=== PATIENT | female | born 1950 | race Caucasian/White ===

== ENCOUNTER 2017-05-07 13:09 | Emergency (ER) | payer OTHER ==
[~2017-05-07] VITALS: Ht 157.5 cm; Wt 82.6 kg
[2017-05-07 13:13] VITALS: BP 136/60
--- NOTE | 2017-05-07 16:37 | NUR ---
PT AMBULATED TO BED 2
--- NOTE | 2017-05-07 16:45 | NUR ---
66/F PRESENT TO ER C/O LT HAND PAIN x 3 DAYS AGO. HX: POLIO, HYPOTHYROIDISM PT STATES SHE FELL AND LANDED ON HER LT HAND, PT DENIES LOC/KO. AAOX4 WITH EVEN AND STEADY GAIT; PATIENT STATES PAIN OF 5/10 AT THIS TIME; PATIENT POSITIONED FOR COMFORT; HOB ELEVATED; BEDRAILS UP X2; BED DOWN. ER MD MADE AWARE OF PT STATUS.
--- NOTE | 2017-05-07 16:58 | NUR ---
Patient being evaluated by physician at bedside.
[2017-05-07] MEDS ORDERED: KETOROLAC 60 MG/2 ML VIAL IM ONE (17:00)
[2017-05-07] MEDS ORDERED: HYDROcodone/APAP 5/325 MG 1 TAB TAB PO ONE (17:00)
--- NOTE | 2017-05-07 17:23 | NUR ---
Patient discharged with v/s stable. Written and verbal after care instructions given and explained. Patient alert, oriented and verbalized understanding of instructions. Ambulatory with steady gait. All questions addressed prior to discharge. ID band removed. Patient advised to follow up with PMD. Rx of MOTRIN, TRAMADOL given. Patient educated on indication of medication including possible reaction and side effects. Opportunity to ask questions provided and answered.
[2017-05-07 17:49] VITALS: BP 136/60
== END 2017-05-07 17:23 | disposition home or self-care (01) ==
LOC: MED 13:09
DX: S62.327A Displaced fracture of shaft of fifth metacarpal bone, left hand, initial encounter for closed fracture (principal); W19.XXXA Unspecified fall, initial encounter; Y93.89 Activity, other specified; Y92.89 Other specified places as the place of occurrence of the external cause; Y99.8 Other external cause status; E03.9 Hypothyroidism, unspecified
CPT/HCPCS: 73130; 99284

== ENCOUNTER 2020-09-09 11:24 | Emergency (ER) | payer OTHER ==
[~2020-09-09] VITALS: Ht 144.8 cm; Wt 74.8 kg
[2020-09-09 11:31] VITALS: BP 155/73
--- NOTE | 2020-09-09 11:36 | NUR ---
PT TO AWAIT IN LOBBY
--- NOTE | 2020-09-09 12:55 | NUR ---
PT AMBULATED TO BED 09
--- NOTE | 2020-09-09 13:29 | NUR ---
69 YEAR OLD FEMALE COMPLAINS OF LEFT EYE PRESSURE X 3 DAYS. PT DENIES TRAUMA OR PAIN, STATES EYE HAS BLURRY VISION. REDNESS NOTED IN EYE, PT DENIES DISCHARGE. AOX4, BREATHING EVEN AND UNLABORED, SKIN WARM AND DRY. BED IN LOWEST POSITION, LOCKED, BED RAIL UPX1. PMH - HYPOTHYROID ALLERGIES - NKA
--- NOTE | 2020-09-09 14:00 | NUR ---
Dr. Colunga is evaluating the patient at bedside.
[2020-09-09] MEDS ORDERED: TETRACAINE HCL/PF 0.5% OPTH 4 ML BTL ONE (14:03)
[2020-09-09] MEDS ORDERED: TOMOMETER 1 DEV DEV MC ONE (14:04)
[2020-09-09] MEDS ORDERED: TETRACAINE HCL/PF 0.5% OPTH 4 ML BTL OP ONE (14:05)
--- NOTE | 2020-09-09 14:29 | NUR ---
Dr. Colunga is at the bedside for procedure.
[2020-09-09] MEDS ORDERED: IBUP-2213 PO (14:36)
[2020-09-09 14:41] VITALS: BP 155/73
--- NOTE | 2020-09-09 14:42 | NUR ---
Patient discharged with v/s stable. Written and verbal after care instructions about subconjunctival hemorrhage given and explained. Patient alert, oriented and verbalized understanding of instructions. Ambulatory with steady gait. All questions addressed prior to discharge. ID band removed. Patient advised to follow up with PMD. Rx of ibuprofen given. Patient educated on indication of medication including possible reaction and side effects. Opportunity to ask questions provided and answered.
== END 2020-09-09 14:42 | disposition home or self-care (01) ==
LOC: MED 11:24
DX: H11.32 Conjunctival hemorrhage, left eye (principal); E03.9 Hypothyroidism, unspecified
CPT/HCPCS: 99283